=== PATIENT | female | born 1980 | race Caucasian/White ===

== ENCOUNTER 2016-11-16 07:00 | Inpatient (IN) | payer MEDICAID ==
[2016-11-16] VITALS (15 sets, daily range): BP systolic 105–134; BP diastolic 59–85
[~2016-11-16] VITALS: Ht 172.7 cm; Wt 97.5 kg
[2016-11-16 08:34] LABS: Urine RBC None Seen /hpf (0 - 4)
[2016-11-16 08:47] LABS: Basophils # (auto) 0 uL; Basophils % (auto) 0.3 % (0.0-2.0); Eosinophils # (auto) 0.3 uL; Eosinophils % (auto) 3.2 % (0.0-7.0); Hematocrit 37.7 % (36.0-46.0); Hemoglobin 12.8 g/dL (12.2-16.2); Lymphocytes # (auto) 1.9 uL; Lymphocytes % (auto) 19.5 % (10.0-50.0); Mean Corpuscular Hemoglobin 31.5 pg (28.0-32.0); Mean Corpuscular Volume 92.5 fL (80.0-100.0); Mean Platelet Volume 8.2 fL (7.4-10.4); Monocytes # (auto) 0.5 uL; Monocytes % (auto) 5.3 % (0.0-12.0); Neutrophils # (auto) 7.1 uL; Neutrophils % (auto) 71.7 % (37.0-80.0); Platelet Count (auto) 227 10^3/uL (140-450); Red Cell Distribution Width 13.5 % (11.6-16.0); White Blood Cell 9.9 10^3/uL (4.4-10.8)
[2016-11-16 09:01] LABS: INR 0.91 (0.9-1.15); Partial Thromboplastin Time 27.6 sec (22.64-33.71); Prothrombin Time 9.8 sec (9.37-12.3)
[2016-11-16 09:02] LABS: Urine Bilirubin Negative (Negative); Urine Blood Negative /uL (Negative); Urine Color Yellow (Yellow); Urine Glucose Normal (Normal); Urine Ketone Negative (Negative); Urine Mucus FEW (None Seen); Urine Nitrite Negative (Negative); Urine Squamous Epithelial Cell FEW /hpf (<5); Urine Urobilinogen Normal (Negative); Urine pH 5.5 (5.0-8.0)
[2016-11-16] MEDS: LACTATED RINGER'S 1,000 ML IV SCH ×4 (09:20→22:30)
[2016-11-16 09:40] LABS: BUN/Creatinine Ratio 15.5; Bilirubin, Total 0.6 mg/dL (0.2-1.0); Calcium 8.8 mg/dL (8.5-10.1)
[2016-11-16 09:41] LABS: Albumin 2.8 g/dL (3.4-5.0); Total Protein 6.9 g/dL (6.4-8.2)
[2016-11-16] MEDS ORDERED: ceFAZolin 1GM VL ONE (10:28)
[2016-11-16] MEDS ORDERED: ONDANSETRON HCL 4 MG/2 ML VIAL ONE (10:28)
[2016-11-16] MEDS ORDERED: fentaNYL CITRATE 100 MCG/2 ML VL ONE ×2 (10:28→11:20)
[2016-11-16] MEDS ORDERED: KETOROLAC TROMETH 30 MG/ML 1ML VIAL ONE (10:29)
[2016-11-16] MEDS ORDERED: OXYTOCIN 10 UNIT/ML 10ML VIAL ONE (10:29)
[2016-11-16] MEDS ORDERED: MORPHINE SULF(PF) 0.5MG/ML 10ML VIAL ONE (10:31)
[2016-11-16] MEDS ORDERED: DEXAMETHASONE SOD PHOS 10MG/1ML VIAL INJ IV ONE (10:33)
[2016-11-16] MEDS ORDERED: NEOSTIGMINE 1 MG/ML INJ (10mg/10ML VIAL) IV ONE (10:33)
[2016-11-16] MEDS ORDERED: GLYCOPYRROLATE 0.2 MG/ML 1ML VIAL IV ONE (10:33)
[2016-11-16] MEDS ORDERED: SUCCINYLCHOLINE CHLORIDE 20 MG/ML 10ML VIAL IV ONE (10:59)
[2016-11-16] MEDS ORDERED: ROCURONIUM 10MG/ML 10ML VIAL IV ONE (11:10)
[2016-11-16] MEDS ORDERED: ONDANSETRON HCL 4 MG/2 ML VIAL IV PRN ×2 (11:45→12:30)
[2016-11-16] MEDS ORDERED: MORPHINE SULF INJ 2 MG/ML SYRINGE 1ML IV PRN (11:45)
[2016-11-16] MEDS ORDERED: HYDROmorphone HCL 2 MG/ML VL IV PRN ×2 (11:45→12:30)
[2016-11-16] MEDS ORDERED: HYDROmorphone HCL 2 MG/ML VL ONE (12:14)
[2016-11-16] MEDS: HYDROmorphone HCL 2 MG/ML VL IV PRN ×3 (12:25→13:51)
[2016-11-16] MEDS ORDERED: ONDANSETRON HCL 4 MG/2 ML VIAL IV ONE (12:30)
[2016-11-16] MEDS ORDERED: diphenhdrAMINE HCL 50 MG/1 ML VL IV PRN (12:30)
[2016-11-16] MEDS ORDERED: DEXAMETHASONE SOD PHOS 10MG/1ML VIAL INJ IV PRN (12:30)
[2016-11-16] MEDS ORDERED: NALOXONE HCL 0.4 MG/ML VIAL IV PRN ×2 (12:30)
[2016-11-16] MEDS: LACT. RINGERS/OXYTOCIN 20UNITS 1,000 ML IV SCH ×2 (13:50→18:32)
[2016-11-16] MEDS: KETOROLAC TROMETH 30 MG/ML 1ML VIAL IV PRN ×2 (15:39→23:45)
[2016-11-16 17:21] LABS: Basophils # (auto) 0 uL; Eosinophils # (auto) 0 uL; Hematocrit 36.3 % (36.0-46.0); Hemoglobin 11.9 g/dL (12.2-16.2); Mean Corpuscular Hgb Conc. 32.9 g/dL (32.0-36.0); Mean Corpuscular Volume 94.4 fL (80.0-100.0); Mean Platelet Volume 8.6 fL (7.4-10.4); Monocytes # (auto) 0.3 uL; Monocytes % (auto) 2.3 % (0.0-12.0); Neutrophils # (auto) 13.4 uL; Neutrophils % (auto) 90.7 % (37.0-80.0); Platelet Count (auto) 216 10^3/uL (140-450); Red Cell Distribution Width 13.1 % (11.6-16.0); White Blood Cell 14.8 10^3/uL (4.4-10.8)
[2016-11-16] MEDS: ceFAZolin 1GM/50ML D5W 50 ML IV SCH (20:48)
[2016-11-17] VITALS (12 sets, daily range): BP systolic 108–124; BP diastolic 52–76
[2016-11-17] MEDS: LACTATED RINGER'S 1,000 ML IV SCH (04:30)
[2016-11-17 06:24] LABS: Basophils # (auto) 0 uL; Basophils % (auto) 0.2 % (0.0-2.0); Eosinophils # (auto) 0 uL; Eosinophils % (auto) 0.3 % (0.0-7.0); Hematocrit 28.9 % (36.0-46.0); Hemoglobin 9.7 g/dL (12.2-16.2); Lymphocytes # (auto) 2.3 uL; Lymphocytes % (auto) 17.1 % (10.0-50.0); Mean Corpuscular Hemoglobin 31.6 pg (28.0-32.0); Mean Corpuscular Hgb Conc. 33.6 g/dL (32.0-36.0); Mean Corpuscular Volume 93.8 fL (80.0-100.0); Mean Platelet Volume 8.3 fL (7.4-10.4); Monocytes % (auto) 7.4 % (0.0-12.0); Neutrophils # (auto) 9.9 uL; Platelet Count (auto) 197 10^3/uL (140-450); White Blood Cell 13.2 10^3/uL (4.4-10.8)
[2016-11-17] MEDS: KETOROLAC TROMETH 30 MG/ML 1ML VIAL IV PRN (07:38)
[2016-11-17] MEDS ORDERED: BISACODYL 10 MG RECT SUPP PR PRN (10:00)
[2016-11-17] MEDS: DOCUSATE CALCIUM 240 MG CAP PO SCH (11:00)
[2016-11-17] MEDS: DOCUSATE SOD 100 MG CAP PO SCH ×2 (11:00→22:18)
[2016-11-17] MEDS: ceFAZolin 1GM/50ML D5W 50 ML IV SCH (12:30)
[2016-11-17] MEDS: SIMETHICONE 80 MG CHEWABLE TABLET PO SCH ×3 (12:30→22:18)
[2016-11-17] MEDS ORDERED: IBUPROFEN 800 MG TAB PO ONE (12:40)
[2016-11-17] MEDS ORDERED: IBUPROFEN 800 MG TAB PO PRN (12:45)
[2016-11-17] MEDS ORDERED: HYDROcodone-ACET 5/325MG TAB PO PRN (22:45)
[2016-11-17] MEDS: HYDROcodone-ACET 5/325MG TAB PO PRN (23:00)
[2016-11-18 04:00] VITALS: BP 122/73
[2016-11-18] MEDS: HYDROcodone-ACET 5/325MG TAB PO PRN ×3 (04:00→19:32)
[2016-11-18] MEDS ORDERED: IBUPROFEN 800 MG TAB PO ONE (04:43)
[2016-11-18] MEDS: SIMETHICONE 80 MG CHEWABLE TABLET PO SCH ×4 (07:29→22:22)
[2016-11-18] MEDS: DOCUSATE SOD 100 MG CAP PO SCH ×2 (10:30→22:22)
[2016-11-18] MEDS: DOCUSATE CALCIUM 240 MG CAP PO SCH (10:30)
[2016-11-18 12:30] VITALS: BP 124/66
[2016-11-18 16:00] VITALS: BP 129/76
[2016-11-18 19:00] VITALS: BP 128/84
[2016-11-18 23:00] VITALS: BP 118/58
[2016-11-19] MEDS ORDERED: IBUPROFEN 800 MG TAB PO ONE (02:27)
[2016-11-19] MEDS ORDERED: IBUPROFEN 800 MG TAB PO PRN (02:30)
[2016-11-19] MEDS: HYDROcodone-ACET 5/325MG TAB PO PRN (02:34)
[2016-11-19 04:00] VITALS: BP 137/91
[2016-11-19] MEDS: SIMETHICONE 80 MG CHEWABLE TABLET PO SCH (06:37)
[2016-11-19 08:03] VITALS: BP 137/84
[2016-11-19] MEDS: DOCUSATE SOD 100 MG CAP PO SCH (10:14)
[2016-11-19] MEDS: DOCUSATE CALCIUM 240 MG CAP PO SCH (10:14)
== END 2016-11-19 10:45 | disposition home or self-care (01) | DRG 540 ==
LOC: LDRP 07:00
PROVIDERS: ADMIT Specialist; ATTEND Specialist
PROC: 0UL70CZ Occlusion of Bilateral Fallopian Tubes with Extraluminal Device, Open Approach (ICD-10-PCS; 2016-11-16)
PROC: 10D00Z1 Extraction of Products of Conception, Low, Open Approach (ICD-10-PCS; principal; 2016-11-16 10:33)
DX: O34.211 Maternal care for low transverse scar from previous cesarean delivery (principal); J45.909 Unspecified asthma, uncomplicated; O99.52 Diseases of the respiratory system complicating childbirth; Z37.0 Single live birth; Z3A.39 39 weeks gestation of pregnancy; O74.5 Spinal and epidural anesthesia-induced headache during labor and delivery; Z30.2 Encounter for sterilization
CPT/HCPCS: 36415; 51702; 59025; 80053; 81001; 85025; 85610; 85730; 86850; 86900; 86901; 94762; 96365; 96366; 96375; G0434; J0330; J0690; J1100; J1885; J2405; J2590

== ENCOUNTER 2016-11-20 15:20 | Inpatient (IN) | payer MEDICAID ==
[~2016-11-20] VITALS: Ht 172.7 cm; Wt 98.1 kg
[2016-11-20] MEDS ORDERED: SODIUM CHLORIDE 0.9% 1,000 ML IV ONE (16:10)
[2016-11-20 16:20] LABS: Urine Bilirubin Negative (Negative); Urine Color Yellow (Yellow); Urine Glucose Normal (Normal); Urine Ketone Negative (Negative); Urine Nitrite Negative (Negative); Urine RBC 2 /hpf (0 - 4); Urine Urobilinogen Normal (Negative)
[2016-11-20 16:24] LABS: Urine Blood 2+ /uL (Negative)
[2016-11-20 16:42] LABS: DEFINITIVE VIEW TRANSMISSION; Hematocrit 35.5 % (36.0-46.0); Hemoglobin 12.1 g/dL (12.2-16.2); Mean Corpuscular Hemoglobin 31.5 pg (28.0-32.0); Mean Corpuscular Volume 92.6 fL (80.0-100.0); Mean Platelet Volume 8.7 fL (7.4-10.4); Platelet Count (auto) 229 10^3/uL (140-450); Red Cell Distribution Width 12.1 % (11.6-16.0); SUSPECT VIEW TRANSMISSION; White Blood Cell 10.4 10^3/uL (4.4-10.8)
[2016-11-20 16:47] LABS: Metamyelocytes % 0; Myelocytes % 0; Promyelocytes % 0; Reactive Lymphocytes 0
[2016-11-20 16:49] LABS: Albumin 2.6 g/dL (3.4-5.0); Anion Gap 11 (5-15); Aspartate Aminotransferase 71 U/L (15-37); BUN/Creatinine Ratio 18.8; Blood Urea Nitrogen 12 mg/dL (7-18); Calcium 8.9 mg/dL (8.5-10.1); Carbon Dioxide 22 mmol/L (21-32); Chloride 109 mmol/L (98-107); GFR African American 137 mL/min; GFR Non-African American 113 mL/min; Glucose 85 mg/dL (74-106); Magnesium 2.3 mg/dL (1.6-2.6); Potassium 4.6 mmol/L (3.5-5.1); Sodium 142 mmol/L (136-145)
[2016-11-20 16:54] LABS: Alkaline Phosphatase 119 U/L (45-117); Bilirubin, Total 0.4 mg/dL (0.2-1.0); Total Protein 6.8 g/dL (6.4-8.2)
[2016-11-20 17:37] LABS: INR 0.91 (0.9-1.15); Partial Thromboplastin Time 27.1 sec (22.64-33.71); Prothrombin Time 9.8 sec (9.37-12.3)
[2016-11-20 19:00] LABS: Platelet Estimate Adequate; RBC Morphology Normal
[2016-11-20] MEDS ORDERED: HYDROmorphone HCL 2 MG/ML VL IV ONE (20:00)
[2016-11-20] MEDS ORDERED: ONDANSETRON HCL 4 MG/2 ML VIAL IV ONE (20:00)
[2016-11-20] MEDS ORDERED: SODIUM CHLORIDE 0.9% 1,000 ML IV SCH (22:38)
[2016-11-20] MEDS ORDERED: hydrALAZINE HCL 20 MG/ML VL IV ONE (22:45)
[2016-11-20] MEDS ORDERED: NITROGLYCERIN 0.4 MG SL TAB SL PRN (22:45)
[2016-11-20] MEDS ORDERED: ONDANSETRON HCL 4 MG/2 ML VIAL IV PRN (22:45)
[2016-11-20] MEDS ORDERED: ACETAMINOPHEN 325 MG TAB PO PRN (22:45)
[2016-11-20] MEDS ORDERED: MORPHINE SULF INJ 2 MG/ML SYRINGE 1ML IV PRN (22:45)
[2016-11-20 23:45] VITALS: BP 145/81
[2016-11-21] VITALS (17 sets, daily range): BP systolic 130–146; BP diastolic 69–119
[2016-11-21] MEDS ORDERED: ALBUAER3 IN (01:03)
[2016-11-21] MEDS: HYDROcodone-ACET 5/325MG TAB PO PRN ×2 (05:19)
[2016-11-21 07:01] LABS: Basophils # (auto) 0 uL; Basophils % (auto) 0.3 % (0.0-2.0); Eosinophils # (auto) 0.4 uL; Eosinophils % (auto) 3.9 % (0.0-7.0); Hematocrit 33.3 % (36.0-46.0); Hemoglobin 11.2 g/dL (12.2-16.2); Lymphocytes # (auto) 2.8 uL; Lymphocytes % (auto) 28.1 % (10.0-50.0); Mean Corpuscular Hemoglobin 31.7 pg (28.0-32.0); Mean Corpuscular Hgb Conc. 33.7 g/dL (32.0-36.0); Mean Corpuscular Volume 94.1 fL (80.0-100.0); Mean Platelet Volume 8.8 fL (7.4-10.4); Monocytes # (auto) 0.7 uL; Neutrophils % (auto) 60.7 % (37.0-80.0); Platelet Count (auto) 271 10^3/uL (140-450); Red Cell Distribution Width 13.1 % (11.6-16.0); White Blood Cell 9.9 10^3/uL (4.4-10.8)
[2016-11-21 07:22] LABS: Albumin 2.1 g/dL (3.4-5.0); BUN/Creatinine Ratio 23.7; Bilirubin, Total 0.4 mg/dL (0.2-1.0); Calcium 7.9 mg/dL (8.5-10.1); Potassium 3.5 mmol/L (3.5-5.1); Total Protein 5.5 g/dL (6.4-8.2)
[2016-11-21] MEDS ORDERED: PANTOPRAZOLE SODIUM 40 MG/10 ML VIAL IV SCH (10:00)
[2016-11-21] MEDS ORDERED: MAGNESIUM SULFATE 40MG/ML 1,000 ML IV SCH (11:19)
[2016-11-21] MEDS ORDERED: SODIUM CHLORIDE 0.9% 1,000 ML IV SCH (11:19)
[2016-11-21] MEDS ORDERED: hydrALAZINE HCL 20 MG/ML VL IV PRN (12:45)
[2016-11-21] MEDS ORDERED: LIDOCAINE HCL 2 %PF INJ 10ML AMP IJ ONE (15:31)
[2016-11-21] MEDS: ONDANSETRON HCL 4 MG/2 ML VIAL IV PRN (16:46)
[2016-11-21] MEDS: HYDROmorphone HCL 2 MG/ML VL IV PRN (16:46)
[2016-11-21 18:52] LABS: Albumin 2.4 g/dL (3.4-5.0); BUN/Creatinine Ratio 15.3; Bilirubin, Total 0.4 mg/dL (0.2-1.0); Calcium 7.6 mg/dL (8.5-10.1); Potassium 3.5 mmol/L (3.5-5.1); Total Protein 6.3 g/dL (6.4-8.2)
[2016-11-22] VITALS (16 sets, daily range): BP systolic 124–146; BP diastolic 63–80
[2016-11-22 07:05] LABS: Basophils # (auto) 0 uL; Basophils % (auto) 0.3 % (0.0-2.0); Eosinophils # (auto) 0.3 uL; Eosinophils % (auto) 3.8 % (0.0-7.0); Hematocrit 36.2 % (36.0-46.0); Lymphocytes # (auto) 1.6 uL; Lymphocytes % (auto) 18.1 % (10.0-50.0); Mean Corpuscular Hemoglobin 30.8 pg (28.0-32.0); Mean Corpuscular Hgb Conc. 33.2 g/dL (32.0-36.0); Mean Corpuscular Volume 92.7 fL (80.0-100.0); Mean Platelet Volume 7.8 fL (7.4-10.4); Monocytes # (auto) 0.6 uL; Monocytes % (auto) 6.3 % (0.0-12.0); Neutrophils # (auto) 6.4 uL; Neutrophils % (auto) 71.5 % (37.0-80.0); Platelet Count (auto) 320 10^3/uL (140-450); Red Cell Distribution Width 13.1 % (11.6-16.0); White Blood Cell 8.9 10^3/uL (4.4-10.8)
[2016-11-22 07:44] LABS: Albumin 2.3 g/dL (3.4-5.0); BUN/Creatinine Ratio 13.2; Bilirubin, Total 0.4 mg/dL (0.2-1.0); Calcium 6.9 mg/dL (8.5-10.1); Potassium 3.9 mmol/L (3.5-5.1); Total Protein 6.3 g/dL (6.4-8.2)
[2016-11-22] MEDS: ONDANSETRON HCL 4 MG/2 ML VIAL IV PRN (08:40)
[2016-11-22] MEDS: HYDROmorphone HCL 2 MG/ML VL IV PRN (08:51)
[2016-11-22] MEDS ORDERED: BISACODYL 10 MG RECT SUPP PR PRN (09:00)
[2016-11-22] MEDS ORDERED: PANTOPRAZOLE 40 MG TAB PO ONE (10:30)
[2016-11-22] MEDS: hydrALAZINE HCL 25 MG TAB PO SCH ×2 (10:30→22:00)
[2016-11-22] MEDS: DOCUSATE SOD 100 MG CAP PO SCH ×2 (10:58→22:15)
[2016-11-22] MEDS: HYDROcodone-ACET 5/325MG TAB PO PRN ×2 (13:21→19:02)
[2016-11-23] VITALS (11 sets, daily range): BP systolic 131–147; BP diastolic 72–89
[2016-11-23] MEDS: HYDROcodone-ACET 5/325MG TAB PO PRN (00:52)
[2016-11-23 08:55] LABS: Albumin 2.6 g/dL (3.4-5.0); BUN/Creatinine Ratio 13.8; Bilirubin, Total 0.6 mg/dL (0.2-1.0); Calcium 7.5 mg/dL (8.5-10.1); Potassium 4.2 mmol/L (3.5-5.1); Total Protein 6.9 g/dL (6.4-8.2)
[2016-11-23] MEDS ORDERED: PANTOPRAZOLE 40 MG TAB PO SCH (10:00)
== END 2016-11-23 11:22 | disposition home or self-care (01) | DRG 561 ==
LOC: ER 15:22 → TELE-EAST 15:23 → DOU IN ICU 11-21 11:57 → ICU WEST 11-21 19:10
PROVIDERS: ADMIT Nurse Practitioner; ATTEND Internal Medicine
PROC: 3E0R3GC Introduction of Other Therapeutic Substance into Spinal Canal, Percutaneous Approach (ICD-10-PCS; principal; 2016-11-21)
DX: O99.43 Diseases of the circulatory system complicating the puerperium (principal); E43 Unspecified severe protein-calorie malnutrition; R00.1 Bradycardia, unspecified; I25.10 Atherosclerotic heart disease of native coronary artery without angina pectoris; O25.3 Malnutrition in the puerperium; Z68.32 Body mass index [BMI] 32.0-32.9, adult; Z98.51 Tubal ligation status; O14.95 Unspecified pre-eclampsia, complicating the puerperium; E44.0 Moderate protein-calorie malnutrition; O89.4 Spinal and epidural anesthesia-induced headache during the puerperium
CPT/HCPCS: 36415; 62273; 70450; 71010; 80053; 81001; 81025; 83735; 84484; 85007; 85025; 85027; 85610; 85730; 86850; 86900; 86901; 87081; 93005; 96361; 96374; 96375; C9113; G0434; J2405